=== PATIENT | female | born 1930 | race Caucasian/White ===

== ENCOUNTER 2018-03-15 12:43 | Observation (INO) ==
[2018-03-15 13:59] LABS: Basophils % 0.5 % (0.0-0.8); Eosinophils # 0.2 10*3/uL (0.0-0.87); Eosinophils % 2.4 % (0.00-10.9); Hematocrit 41.6 VOL% (35.7-47.0); Hemoglobin 13.6 GM/DL (12.0-16.0); Immature Granulocytes % 0.4 %; Immature Granulocytes Absolute 0.03 #; Lymphocytes # 1.1 10*3/uL (1.4-4.0); Lymphocytes % 12.6 % (21.3-54.2); Mean Corpuscular HGB Conc 32.7 GM/DL (32-36); Mean Corpuscular Hemoglobin 30 PG (27-34); Mean Corpuscular Volume 91.6 FL (87-102); Mean Platelet Volume 11.1 FL (9.6-12.0); Monocytes # 0.6 10*3/uL (0.11-0.8); Monocytes % 6.6 % (1.7-12.7); Neutrophils # 6.6 10*3/uL (1.4-7.4); Neutrophils % 77.5 % (38.7-73.9); Platelet Count 238 T/CUMM (130-400); Red Blood Count 4.54 MC/CUMM (3.8-5.5); Red Cell Distribution Width 13.3 % (9.3-17.3); White Blood Count 8.5 T/CUMM (4-12)
[2018-03-15 14:05] LABS: Apearance,Urine Slightly Hazy (Clear); Bilirubin,Urine Negative (Negative); Blood, Urine Small mg/dL (Negative); Glucose,Urine (UA) Negative (Negative); Ketones,Urine Negative (Negative); Mucus,Urine Occasional /LPF (Occasional); Nitrite,Urine Negative (Negative); Protein,Urine Negative; RBC,Urine 26 /HPF (0-4); Urine Color Yellow (Yellow); Urine Specific Gravity 1.015 (1.001-1.035); WBC,Urine 133 /HPF (0-6)
[2018-03-15 14:30] LABS: Albumin 3.5 G/DL (3.4-5.0); Bilirubin,Total 0.7 MG/DL (0.2-1.0); Calcium 9.2 MG/DL (8.5-10.1); Osmolality,Calculated 284.3 MOS/KG (273-304); Total Protein 7.1 G/DL (6.4-8.3)
[2018-03-15] MEDS ORDERED: cefTRIAXone 1,000 MG in SODIUM CHLORIDE 0.9% 100 ML IV STA (15:10)
[2018-03-15] MEDS ORDERED: ONDANSETRON 4 MG/2 ML VIAL IV PRN (15:27)
[2018-03-15] MEDS ORDERED: ACETAMINOPHEN 325 MG TABLET PO PRN (15:27)
[2018-03-15] MEDS ORDERED: cefTRIAXone 1,000 MG in SYRINGE 1 EACH IV SCH (15:30)
[2018-03-15] MEDS: SODIUM CHLORIDE 0.45% 1,000 ML IV SCH (17:22)
[2018-03-15] MEDS ORDERED: INFLUENZA VIRUS VACCINE 0.5 ML SYRINGE IM ONE (18:11)
[2018-03-15] MEDS ORDERED: ENOXAPARIN 30 MG/0.3 ML SYRINGE SUBCUT SCH (21:00)
[2018-03-16 04:57] LABS: Calcium 8.5 MG/DL (8.5-10.1); Osmolality,Calculated 284.1 MOS/KG (273-304); Potassium 3.7 MMOL/L (3.5-5.1)
[2018-03-16] MEDS: PANTOPRAZOLE 40 MG TABLET PO SCH (09:39)
[2018-03-16] MEDS: SODIUM CHLORIDE 0.45% 1,000 ML IV SCH ×2 (09:40→22:01)
[2018-03-16] MEDS: cefTRIAXone 1,000 MG in SYRINGE 1 EACH IV SCH (14:43)
[2018-03-16] MEDS ORDERED: ENOXAPARIN 40 MG/0.4 ML SYRINGE SUBCUT SCH (21:00)
[2018-03-16] MEDS ORDERED: DONEPEZIL 5 MG TABLET PO SCH (21:00)
[2018-03-17 03:33] LABS: Basophils % 0.5 % (0.0-0.8); Eosinophils # 0.4 10*3/uL (0.0-0.87); Eosinophils % 6.3 % (0.00-10.9); Hematocrit 37.1 VOL% (35.7-47.0); Hemoglobin 11.5 GM/DL (12.0-16.0); Immature Granulocytes % 0.2 %; Immature Granulocytes Absolute 0.01 #; Lymphocytes # 1.2 10*3/uL (1.4-4.0); Lymphocytes % 20.3 % (21.3-54.2); Mean Corpuscular Hemoglobin 29 PG (27-34); Mean Corpuscular Volume 93.7 FL (87-102); Mean Platelet Volume 10.8 FL (9.6-12.0); Monocytes # 0.6 10*3/uL (0.11-0.8); Monocytes % 9.1 % (1.7-12.7); Neutrophils # 3.9 10*3/uL (1.4-7.4); Neutrophils % 63.6 % (38.7-73.9); Platelet Count 189 T/CUMM (130-400); Red Blood Count 3.96 MC/CUMM (3.8-5.5); Red Cell Distribution Width 13.3 % (9.3-17.3); White Blood Count 6.1 T/CUMM (4-12)
[2018-03-17 04:03] LABS: Osmolality,Calculated 284.8 MOS/KG (273-304); Potassium 3.6 MMOL/L (3.5-5.1)
[2018-03-17] MEDS ORDERED: hydrALAZINE 20 MG/1 ML VIAL IV ONE (08:00)
[2018-03-17] MEDS ORDERED: ATENOLOL/CHLORTHALIDONE 50-25 MG TABLET PO SCH (09:00)
[2018-03-17] MEDS ORDERED: ASPIRIN EC 325 MG TABLET PO SCH (09:00)
[2018-03-17] MEDS ORDERED: TOLTERODINE LA 4 MG CAPSULE PO SCH (09:00)
[2018-03-17] MEDS ORDERED: POTASSIUM CHLORIDE 10 MEQ TABLET PO SCH (09:00)
[2018-03-17] MEDS: PANTOPRAZOLE 40 MG TABLET PO SCH (09:07)
[2018-03-17 12:40] VITALS: BP 170/94
[2018-03-17] MEDS: cefTRIAXone 1,000 MG in SYRINGE 1 EACH IV SCH (14:07)
[2018-03-17] MEDS: SODIUM CHLORIDE 0.45% 1,000 ML IV SCH (14:32)
[2018-03-18] MEDS ORDERED: Alendronate [Fosamax] 70 MG PO SCH (07:30)
== END 2018-03-17 17:20 | disposition home health service (06) ==
LOC: N.ED 12:43 → N.EDINP 12:43 → N.5E 16:18
PROVIDERS: ADMIT Family Medicine; ATTEND Family Medicine